=== PATIENT | male | born 1985 | race Caucasian/White ===

== ENCOUNTER 2022-04-18 16:27 | Inpatient (IN) ==
[2022-04-18 19:25] LABS: Basophils % 0.8 % (0.0-0.8); Eosinophils % 1.5 % (0.00-10.9); Hematocrit 35.4 VOL% (42.0-52.0); Immature Granulocytes % 0.4 %; Immature Granulocytes Absolute 0.01 #; Lymphocytes % 37.5 % (21.2-54.2); Mean Corpuscular HGB Conc 33.9 GM/DL (32-36); Mean Corpuscular Volume 104.1 FL (87-102); Mean Platelet Volume 9.3 FL (9.6-12.0); Monocytes # 0.4 10*3/uL (0.11-0.8); Monocytes % 14.8 % (1.7-12.7); Platelet Count 69 T/CUMM (130-400); Red Cell Distribution Width 17.7 % (9.3-17.3); White Blood Count 2.6 T/CUMM (4-12)
[2022-04-18 19:47] LABS: Platelet Estimate Decreased
[2022-04-18 19:48] LABS: Anisocytosis 1+; Macrocytosis 1+; Polychromasia Slight
[2022-04-18 19:49] LABS: Alanine Aminotransferase 83 U/L (16-61); Albumin 2.3 G/DL (3.4-5.0); Alkaline Phosphatase 130 U/L (45-117); Amylase 92 U/L (25-115); Aspartate Amino Transferase 128 U/L (0-37); Blood Urea Nitrogen 6 MG/DL (7-18); Calcium 8.5 MG/DL (8.5-10.1); Carbon Dioxide 28 MMOL/L (21-32); Chloride 102 MMOL/L (98-107); Glucose 91 MG/DL (74-106); Osmolality,Calculated 267.1 MOS/KG (273-304); Potassium 3.4 MMOL/L (3.5-5.1); Sodium 135 MMOL/L (136-145); Total Protein 7.4 G/DL (6.4-8.2)
[2022-04-18 19:53] LABS: INR 1.4; PT Patient Result 15.3 SECS (10.5-12.0)
[2022-04-18 20:15] LABS: Bilirubin,Urine Large mg/dL (Negative); Blood, Urine Small mg/dL (Negative); Glucose,Urine (UA) 100 mg/dL (Negative); Ketones,Urine Negative (Negative); Nitrite,Urine Negative (Negative); Protein,Urine 30 mg/dL (Negative); Urine Appearance Clear (Clear); Urine Color Brown (Yellow); Urine Specific Gravity >= 1.030 (1.001-1.035); Urine Urobilinogen >= 8.0 eU/dL (<2.0)
[2022-04-18 20:20] LABS: Mucus,Urine Many /LPF (Occasional); RBC,Urine 1 /HPF (0-4)
[2022-04-18] MEDS ORDERED: MORPHINE 2 MG/1 ML SYRINGE IV STA (20:33)
[2022-04-18] MEDS ORDERED: ONDANSETRON 4 MG/2 ML VIAL IV ONE (20:33)
[2022-04-18] MEDS ORDERED: MORPHINE 2 MG/1 ML SYRINGE IV PRN (22:14)
[2022-04-18] MEDS ORDERED: LORazepam 1 MG TABLET PO PRN (22:15)
[2022-04-18] MEDS ORDERED: LORazepam 2 MG/1 ML VIAL IV PRN (22:15)
[2022-04-19] MEDS: ONDANSETRON 4 MG/2 ML VIAL IV PRN ×2 (01:32→10:12)
[2022-04-19] MEDS: HYDROmorphone 1 MG/1 ML SYRINGE IV PRN ×2 (01:32→10:13)
[2022-04-19 06:53] LABS: Basophils % 0.8 % (0.0-0.8); Eosinophils # 0.1 10*3/uL (0.0-0.87); Eosinophils % 2.8 % (0.00-10.9); Hematocrit 33.3 VOL% (42.0-52.0); Hemoglobin 11.4 GM/DL (14.0-18.0); Immature Granulocytes % 0.4 %; Immature Granulocytes Absolute 0.01 #; Lymphocytes % 39.4 % (21.2-54.2); Mean Corpuscular HGB Conc 34.2 GM/DL (32-36); Mean Corpuscular Volume 104.4 FL (87-102); Mean Platelet Volume 9.7 FL (9.6-12.0); Monocytes # 0.4 10*3/uL (0.11-0.8); Monocytes % 14.2 % (1.7-12.7); Neutrophils % 42.4 % (38.7-73.9); Platelet Count 64 T/CUMM (130-400); Red Blood Count 3.19 MC/CUMM (3.8-5.5); Red Cell Distribution Width 17.9 % (9.3-17.3); White Blood Count 2.5 T/CUMM (4-12)
[2022-04-19 07:10] LABS: Platelet Estimate Decreased
[2022-04-19 07:11] LABS: Albumin 2.2 G/DL (3.4-5.0); Bilirubin,Total 8.2 MG/DL (0.20-1.00); Calcium 8.2 MG/DL (8.5-10.1); Osmolality,Calculated 264.4 MOS/KG (273-304); Potassium 3.2 MMOL/L (3.5-5.1); Total Protein 6.9 G/DL (6.4-8.2)
[2022-04-19] MEDS ORDERED: POTASSIUM CHLORIDE 20 MEQ TABLET PO ONE (09:00)
[2022-04-19] MEDS: MULTIVITAMIN (CENTRUM) TABLET PO SCH (10:16)
[2022-04-19] MEDS: THIAMINE 100 MG TABLET PO SCH (10:16)
[2022-04-19] MEDS: FOLIC ACID 1 MG TABLET PO SCH (10:16)
[2022-04-19] MEDS: PANTOPRAZOLE 40 MG TABLET PO SCH (10:19)
[2022-04-19 14:12] LABS: Hepatitis B Core IgM Quant 0.17 Index; Hepatitis B Surface Ag Quant < 0.10 Index; Hepatitis B Surface Ag Result Non-Reactive (NonReactive); Hepatitis C Virus Ab Quant > 11.00 Index; Hepatitis C Virus Ab Result Reactive (NonReactive)
[2022-04-19] MEDS ORDERED: diphenhydrAMINE CAP 50 MG CAPSULE PO PRN (14:20)
[2022-04-19 15:14] LABS: Neutrophils,Peritoneal Fluid 1 %
[2022-04-19 15:16] LABS: RBC,Peritoneal Fluid 1176 T/CUMM
[2022-04-19] MEDS: LACTULOSE 20 GM/30 ML UDCUP PO SCH (22:17)
[2022-04-20 05:56] LABS: Basophils % 0.7 % (0.0-0.8); Eosinophils # 0.1 10*3/uL (0.0-0.87); Eosinophils % 1.9 % (0.00-10.9); Hematocrit 31.3 VOL% (42.0-52.0); Hemoglobin 10.6 GM/DL (14.0-18.0); Immature Granulocytes % 0.4 %; Immature Granulocytes Absolute 0.01 #; Lymphocytes # 1.1 10*3/uL (1.4-4.0); Lymphocytes % 41.6 % (21.2-54.2); Mean Corpuscular HGB Conc 33.9 GM/DL (32-36); Mean Platelet Volume 9.7 FL (9.6-12.0); Monocytes # 0.5 10*3/uL (0.11-0.8); Monocytes % 17.1 % (1.7-12.7); Neutrophils % 38.3 % (38.7-73.9); Platelet Count 64 T/CUMM (130-400); Red Blood Count 3.01 MC/CUMM (3.8-5.5); Red Cell Distribution Width 17.8 % (9.3-17.3); White Blood Count 2.7 T/CUMM (4-12)
[2022-04-20 06:42] LABS: Band Neutrophils 1 % (0-10); Eosinophils 2 % (0-10); Lymphocytes 42 % (20-55); Total Cells Counted 100
[2022-04-20 06:44] LABS: Hypochromia Slight; Macrocytosis 1+; Platelet Estimate Decreased
[2022-04-20 07:53] LABS: Bilirubin,Total 6.7 MG/DL (0.20-1.00); Calcium 7.9 MG/DL (8.5-10.1); Osmolality,Calculated 267.1 MOS/KG (273-304); Potassium 3.9 MMOL/L (3.5-5.1); Total Protein 6.3 G/DL (6.4-8.2)
[2022-04-20] MEDS ORDERED: LACTATED RINGERS 1,000 ML IV SCH (09:30)
[2022-04-20] MEDS ORDERED: LIDOCAINE 2% 5 ML VIAL ONE (12:27)
[2022-04-20] MEDS ORDERED: propofoL 200 MG/20 ML VIAL IV ONE ×2 (12:27)
[2022-04-20] MEDS: LACTULOSE 20 GM/30 ML UDCUP PO SCH ×2 (15:56→20:40)
[2022-04-20] MEDS: MULTIVITAMIN (CENTRUM) TABLET PO SCH (15:56)
[2022-04-20] MEDS: FUROSEMIDE 40 MG TABLET PO SCH (15:57)
[2022-04-20] MEDS: PANTOPRAZOLE 40 MG TABLET PO SCH (15:57)
[2022-04-20] MEDS: THIAMINE 100 MG TABLET PO SCH (15:57)
[2022-04-20] MEDS: FOLIC ACID 1 MG TABLET PO SCH (15:57)
[2022-04-20] MEDS: SPIRONOLACTONE 50 MG TABLET PO SCH (15:57)
[2022-04-21 05:46] LABS: Eosinophils # 0.1 10*3/uL (0.0-0.87); Eosinophils % 1.7 % (0.00-10.9); Hematocrit 32.9 VOL% (42.0-52.0); Hemoglobin 11.1 GM/DL (14.0-18.0); Immature Granulocytes % 0.3 %; Immature Granulocytes Absolute 0.01 #; Lymphocytes # 1.2 10*3/uL (1.4-4.0); Lymphocytes % 39.9 % (21.2-54.2); Mean Corpuscular HGB Conc 33.7 GM/DL (32-36); Mean Corpuscular Volume 106.1 FL (87-102); Mean Platelet Volume 9.8 FL (9.6-12.0); Monocytes # 0.4 10*3/uL (0.11-0.8); Monocytes % 13.1 % (1.7-12.7); Platelet Count 74 T/CUMM (130-400)
[2022-04-21 06:10] LABS: Bilirubin,Total 6.6 MG/DL (0.20-1.00); Calcium 8.2 MG/DL (8.5-10.1); Osmolality,Calculated 265.4 MOS/KG (273-304); Potassium 3.8 MMOL/L (3.5-5.1); Total Protein 6.7 G/DL (6.4-8.2)
[2022-04-21 06:24] LABS: Platelet Estimate Decreased
[2022-04-21 08:59] VITALS: BP 145/71
[2022-04-21] MEDS: PANTOPRAZOLE 40 MG TABLET PO SCH (09:00)
[2022-04-21] MEDS: THIAMINE 100 MG TABLET PO SCH (09:00)
[2022-04-21] MEDS: MULTIVITAMIN (CENTRUM) TABLET PO SCH (09:00)
[2022-04-21] MEDS: FUROSEMIDE 40 MG TABLET PO SCH (09:00)
[2022-04-21] MEDS: FOLIC ACID 1 MG TABLET PO SCH (09:00)
[2022-04-21] MEDS: LACTULOSE 20 GM/30 ML UDCUP PO SCH (09:00)
[2022-04-21] MEDS: SPIRONOLACTONE 50 MG TABLET PO SCH (09:00)
== END 2022-04-21 11:47 | disposition home or self-care (01) | DRG 433 ==
LOC: N.ED 16:27 → N.EDINP 20:54 → N.5E 22:47
PROVIDERS: ADMIT Family Medicine; ATTEND Family Medicine